=== PATIENT | female | born 1955 | race Caucasian/White ===

== ENCOUNTER 2025-04-14 14:34 | Outpatient (CLI) | payer MEDICARE, SELFPAY ==
--- NOTE | 2025-04-14 14:48 | ECG_ITS ---
Test Date: 2025-04-14 15:11:58 Measurements Intervals [place] Rate: 74 P: 48 ME: 216 QRS: 60 QRSD: 90 T: 54 QT: 383 QTc: 426 Interpretive Statements SINUS RHYTHM WITH FIRST DEGREE AV BLOCK LOW QRS VOLTAGE IN PRECORDIAL LEADS [QRS DEFLECTION < 1.0 mV IN CHEST LEADS] No previous ECG available for comparison Electronically Signed On 04-14-2025 15:23:56 [employer]IOR [employer] by John Cuellar M.D.
[2025-04-14 16:15] LABS: Add Urine Microscopic? YES; Appearance Urine Clear (Clear); Glucose Urine UA Negative (Negative); Leukocyte Esterase Ur 2+ LEU/UL (Negative); Need Manual Microscopic Reviewed; Nitrate Urine Negative (Negative); Non Pathogenic Casts 0-2; Specific Grav Ur 1.017 (1.001-1.035)
== END 2025-04-14 14:35 | disposition home or self-care (01) ==
LOC: ANHLAB 14:38
PROVIDERS: PCP Physician Assistant Medical; Visit Provider Nurse Practitioner Family
DX: N39.0 Urinary tract infection, site not specified (principal); R53.83 Other fatigue; Z82.49 Family history of ischemic heart disease and other diseases of the circulatory system
CPT/HCPCS: 81001; 87086; 93005